=== PATIENT | female | born 1975 | race Caucasian/White ===

== ENCOUNTER 2018-08-30 04:15 | Emergency (ER) | payer OTHER ==
[2018-08-30 04:48] VITALS: BP 113/82; TEMP 98.6; BMI 27.2
[2018-08-30] MEDS ORDERED: SODIUM CHLORIDE 1,000 ML IV STA (04:53)
--- NOTE | 2018-08-30 04:53 | PDOC ---
*Physical Exam - Vital Signs Last Vital Signs Temp Pulse Resp BP Pulse Ox 98.6 F 64 18 113/82 99 08/30/18 04:15 08/30/18 04:15 08/30/18 04:15 08/30/18 04:15 08/30/18 04:15 Heart Score/ECG Review #1 ECG reviewed & interpreted by me at: 05:15 08/30/18 05:18 NSR 60 with 1st degree AV block, normal axis, no std/donovan, QTC 428 msec Medical Decision Making - Medical Decision Making 08/30/18 04:53 Pt seen by the Advanced Practice Provider under my direct supervision Ancillary studies reviewed I agree with plan as outlined by the Advanced Practice Provider TANVIR Ruiz *DC/Admit/Observation/Transfer - Discharge Dispostion Condition at time of disposition: Fair - Referrals Referrals: Yony Smith MD [Primary Care Provider] - - Patient Instructions - Post Discharge Activity
--- NOTE | 2018-08-30 04:54 | PDOC ---
History of Present Illness - General Chief Complaint: Blood Pressure Problem Stated Complaint: CHECK BP Time Seen by Provider: 08/30/18 04:21 History Source: Patient Exam Limitations: No Limitations - History of Present Illness Initial Comments: 08/30/18 05:02 Patient is a 42-year-old female with no past medical history who presents to emergency department today for palpitations. Patient states her patient started at 7 PM this evening after taking medication given to her from her friend for shoulder pain. She states that she feels her heart flutter about every 2 minutes. Denies fevers, chills, chest pain, shortness of breath, difficulty breathing, nausea, vomiting and diarrhea. Past History - Travel Traveled outside of the country in the last 30 days: No Close contact w/someone who was outside of country & ill: No - Past Medical History Allergies/Adverse Reactions: Allergies Allergy/AdvReac Type Severity Reaction Status Date / Time No Known Allergies Allergy Verified 08/30/18 04:49 Home Medications: Ambulatory Orders NK [No Known Home Medication] 08/30/18 - Suicide/Smoking/Psychosocial Hx Smoking History: Never smoked Have you smoked in the past 12 months: No Information on smoking cessation initiated: No Hx Alcohol Use: No Drug/Substance Use Hx: No Substance Use Type: None Review of Systems - Review of Systems Able to Perform ROS?: Yes Comments:: 08/30/18 04:53 CONSTITUTIONAL: Absent: fever, chills, diaphoresis, generalized weakness, malaise, loss of appetite HEENT: Absent: rhinorrhea, nasal congestion, throat pain, throat swelling, difficulty swallowing, mouth swelling, ear pain, eye pain, visual Changes CARDIOVASCULAR: Present: palpitations Absent: chest pain, loss of consciousness, irregular heart rate, peripheral edema RESPIRATORY: Absent: cough, shortness of breath, dyspnea with exertion, orthopnea, wheezing, stridor, hemoptysis GASTROINTESTINAL: Absent: abdominal pain, abdominal distension, nausea, vomiting, diarrhea, constipation, melena, hematochezia GENITOURINARY: Absent: dysuria, frequency, urgency, hesitancy, hematuria, flank pain, genital pain MUSCULOSKELETAL: Absent: myalgia, arthralgia, joint swelling SKIN: Absent: rash, itching, pallor HEMATOLOGIC/IMMUNOLOGIC: Absent: easy bleeding, easy bruising, lymphadenopathy, frequent infections ENDOCRINE: Absent: unexplained weight gain, unexplained weight loss, heat intolerance, cold intolerance NEUROLOGIC: Absent: headache, focal weakness or paresthesias, dizziness, unsteady gait, seizure, mental status changes, bladder or bowel incontinence PSYCHIATRIC: Absent: anxiety, depression, suicidal or homicidal ideation, hallucinations. Is the patient limited Turkish proficient: No *Physical Exam - Vital Signs Last Vital Signs Temp Pulse Resp BP Pulse Ox 98.6 F 64 18 113/82 99 08/30/18 04:15 08/30/18 04:15 08/30/18 04:15 08/30/18 04:15 08/30/18 04:15 - Physical Exam Comments: 08/30/18 04:53 GENERAL: Well developed, well nourished. Awake and alert. No acute distress. HEENT: Normocephalic, atraumatic. PERRLA, EOMI. No conjunctival pallor. Sclera are non- icteric. Moist mucous membranes. Oropharynx is clear. NECK: Supple. Full ROM. No JVD. Carotid pulses 2+ and symmetric, without bruits. No thyromegaly. No lymphadenopathy. CARDIOVASCULAR: Regular rate and rhythm. No murmurs, rubs, or gallops. Distal pulses are 2+ and symmetric. PULMONARY: No evidence of respiratory distress. Lungs clear to auscultation bilaterally. No wheezing, rales or rhonchi. ABDOMINAL: Soft. Non-tender. Non-distended. No rebound or guarding. No organomegaly. Normoactive bowel sounds. MUSCULOSKELETAL Normal range of motion at all joints. No bony deformities or tenderness. No CVA tenderness. EXTREMITIES: No cyanosis. No clubbing. No edema. No calf tenderness. SKIN: Warm and dry. Normal capillary refill. No rashes. No jaundice. NEUROLOGICAL: Alert, awake, appropriate. Cranial nerves 2-12 intact. No deficits to light touch and temperature in face, upper extremities and lower extremities. No motor deficits in the in face, upper extremities and lower extremities. Normoreflexic in the upper and lower extremities. Normal speech. Toes are down- going bilaterally. Gait is normal without ataxia. PSYCHIATRIC: Cooperative. Good eye contact. Appropriate mood and affect. ED Treatment Course - LABORATORY CBC & Chemistry Diagram: 08/30/18 05:20 08/30/18 05:20 Medical Decision Making - Medical Decision Making 08/30/18 06:17 Patient is a 42-year-old female with past medical history of anxiety who presents emergency department today with palpitations since last night starting at around 7 PM. On exam patient with normal heart rate and rhythm. S1 and S2 present without murmurs rubs or gallops. Lungs clear auscultation bilaterally Heart rate at 60 bpm. Patient states that she is still feeling palpitations. Differential diagnosis includes but is not limited to cardiac pathology, hypo-/ hyperthyroidism, dehydration,anemia, electrolyte abnormality. Labs, EKG, urine ordered EKG: rate 60 BPM, sinus rhythm with 1st degree AV block. QTc 428. Normal axis. No acute ST-T wave changes 08/30/18 06:41 Labs show no leukocytosis, H&H is stable. Electrolytes are grossly within normal limits. Troponin is negative. TSH is mildly elevated at 3.99; unlikely this is the cause of her palpitations at this time. Patient pending urine and hCG test. Sign out given to TANVIR Connor; patient pending urine results; if normal may go home with PCP and cardiology follow-up. *DC/Admit/Observation/Transfer Diagnosis at time of Disposition: Palpitations - Discharge Dispostion Disposition: HOME Condition at time of disposition: Fair Decision to Admit order: No - Referrals Referrals: Yony Smith MD [Primary Care Provider] - Lan Ortiz MD [Staff Physician] - - Patient Instructions Printed Discharge Instructions: DI for Palpitations Additional Instructions: You were evaluated for your palpitations today. Your EKG was normal. Her lab work showed a mildly elevated TSH. This means you may have low thyroid levels. You need to follow up with your primary care doctor for further testing. Please follow up with cardiology this week regarding her palpitations for further evaluation. A referral has been provided. Please follow up with her primary care doctor this week. Return to the emergency department if you have worsening palpitations, chest pain, shortness of breath, difficulty breathing, or if you have any changes in your symptoms. - Post Discharge Activity Forms/Work/School Notes: Back to Work
[2018-08-30 05:35] LABS: BASO % 0.6 % (0-2.0); EOS % 2.3 % (0-4.5); HEMATOCRIT 39.3 % (32.4-45.2); HEMOGLOBIN 12.4 GM/dL (10.7-15.3); LYMPH % 30.5 % (8-40); MCH 24.8 pg (25.7-33.7); MCHC 31.6 g/dl (32.0-36.0); MEAN CELL VOLUME 78.4 fl (80-96); MONO % 8.7 % (3.8-10.2); NEUT % 57.9 % (42.8-82.8); PLATELET COUNT 101 K/MM3 (134-434); RBC 5.01 M/mm3 (3.60-5.2); WHITE BLOOD COUNT 7.4 K/mm3 (4.0-10.0)
[2018-08-30 06:11] LABS: ALBUMIN 3.6 g/dl (3.4-5.0); ALK PHOS 61 U/L (45-117); ANION GAP 7 MMOL/L (8-16); BILIRUBIN,TOTAL 0.2 mg/dL (0.2-1); BLOOD UREA NITROGEN 17 mg/dL (7-18); CALCIUM 8.5 mg/dL (8.5-10.1); CHLORIDE 104 mmol/L (98-107); CO2 28 mmol/L (21-32); CREATININE 0.6 mg/dL (0.55-1.3); GLUCOSE,RANDOM 89 mg/dL (74-106); MAGNESIUM 2.3 mg/dL (1.8-2.4); POTASSIUM 3.7 mmol/L (3.5-5.1); SGOT/AST 18 U/L (15-37); SGPT/ALT 22 U/L (13-61); SODIUM 139 mmol/L (136-145); TOT PROT 7.1 g/dl (6.4-8.2)
[2018-08-30 06:39] LABS: URINE APPEARANCE CLEAR; URINE BILIRUBIN NEGATIVE (<2.0 mg/dL); URINE COLOR LTYELLOW; URINE GLUCOSE (UA) NEGATIVE (NEGATIVE); URINE KETONE NEGATIVE (NEGATIVE); URINE LEUK ESTERASE NEGATIVE (NEGATIVE); URINE NITRITE NEGATIVE (NEGATIVE); URINE PROTEIN NEGATIVE (NEGATIVE); URINE UROBILINOGEN NEGATIVE mg/dL (0.2-1.0)
[2018-08-30 06:42] LABS: HCG,QUALITATIVE URINE Negative
--- NOTE | 2018-08-30 15:40 | EKG ---
Test Reason : Blood Pressure : / mmHG Vent. Rate : 060 BPM Atrial Rate : 060 BPM P-R Int : 214 ms QRS Dur : 094 ms QT Int : 428 ms P-R-T Axes : 034 058 033 degrees QTc Int : 428 ms SINUS RHYTHM WITH 1ST DEGREE A-V BLOCK OTHERWISE NORMAL ECG WHEN COMPARED WITH ECG OF 10-JAN-2012 16:48, NO SIGNIFICANT CHANGE WAS FOUND Confirmed by GARRETT ANN, VIV ([id number]) on 08/30/2018 3:39:31 PM Referred By: Confirmed By:VIV TUCKER MD
[2018-09-01 12:52] VITALS: PULSE 60
== END 2018-08-30 07:45 | disposition home or self-care (01) ==
LOC: JER 04:15
PROC: 3E0337Z Introduction of Electrolytic and Water Balance Substance into Peripheral Vein, Percutaneous Approach (ICD-10-PCS; principal; 2018-08-30)
DX: R00.2 Palpitations (principal)
CPT/HCPCS: 36415; 80053; 81003; 82550; 83735; 84443; 84484; 84703; 85025; 93005; 93010; 99281-25; 99283-25; J7030

== ENCOUNTER 2020-06-20 23:37 | Emergency (ER) | payer OTHER ==
[2020-06-20 23:47] VITALS: BP 101/65; PULSE 80; TEMP 97; BMI 30.4
[2020-06-21] MEDS ORDERED: CEPHALEXIN MONOHYDRATE 500 MG CAPSULE (UD) PO ONE (01:16)
[2020-06-21] MEDS ORDERED: AMOX TR/POT CLAV 875MG/125MG TABLETS (FP) PO ONE (01:20)
--- NOTE | 2020-06-21 01:32 | PDOC ---
History of Present Illness - General Chief Complaint: Bite Stated Complaint: SWOLLEN LEFT FOOT Time Seen by Provider: 06/21/20 00:29 - History of Present Illness Initial Comments: HPI Pt is 44 yo F with no significant PMH presenting with increased erythema, swelling, and pain along L ankle. Pt reports that she felt a bite 3 days ago and has reported intermittent pruritus since then. Pt reports she has been scratching the area. This morning she notice increased erythema over L ankle. This evening she noticed worsening erythema, swelling, and pain to touching the area. Also reports associated warmth of the area. Worse with movement or touching the ankle; pt can bear weight on L foot. Denies fevers, chills, mayalgias, nausea, vomiting, diarrhea, constipation, chest pain, abdominal pain, and SOB. No sick contacts or recent travel. PMHX: as in HPI PSHX: as in HPI Meds: none Allergies: nkda Tob: denies Etoh: ocassional Rec drugs: denies ROS GENERAL/CONSTITUTIONAL: No fever or chills. No weakness. HEAD, EYES, EARS, NOSE AND THROAT: No change in vision. No ear pain or discharge. No sore throat. CARDIOVASCULAR: No chest pain or shortness of breath RESPIRATORY: No cough, wheezing, or hemoptysis. GASTROINTESTINAL: No nausea, vomiting, diarrhea or constipation. GENITOURINARY: No dysuria, frequency, or change in urination. MUSCULOSKELETAL: No joint or muscle swelling or pain. No neck or back pain. SKIN: + increased erythema, swelling, warmth and pain over L ankle skin NEUROLOGIC: No headache, vertigo, loss of consciousness, or change in strength/sensation. ENDOCRINE: No increased thirst. No abnormal weight change HEMATOLOGIC/LYMPHATIC: No anemia, easy bleeding, or history of blood clots. ALLERGIC/IMMUNOLOGIC: No hives or skin allergy. PE GENERAL: Awake, alert, and fully oriented, in no acute distress HEAD: No signs of trauma, normocephalic, atraumatic EYES: PERRLA, EOMI, sclera anicteric, conjunctiva clear ENT: Auricles normal inspection, hearing grossly normal, nares patent, oropharynx clear without exudates. Moist mucosa NECK: Normal ROM, supple, no lymphadenopathy, JVD, or masses LUNGS: No distress, speaks full sentences, clear to auscultation bilaterally HEART: Regular rate and rhythm, normal S1 and S2, no murmurs, rubs or gallops, peripheral pulses normal and equal bilaterally. ABDOMEN: Soft, nontender, normoactive bowel sounds. No guarding, no rebound. No masses EXTREMITIES : Normal inspection, Normal range of motion. L ankle neurovascularly intact (good distal pulses, sensation and strength intact) NEUROLOGICAL: Cranial nerves II through XII grossly intact. Normal speech, norm al gait, no focal sensorimotor deficits SKIN: Warm, Dry, normal turgor; L ankle tender to palpation, warm, increased erythema of 4 cm in diameter; no fluctuance; no pustular drainage 06/21/20 03:13 Past History - Medical History Allergies/Adverse Reactions: Allergies Allergy/AdvReac Type Severity Reaction Status Date / Time No Known Allergies Allergy Verified 06/20/20 23:42 Home Medications: Ambulatory Orders Amoxicillin/Potassium Clav [Augmentin 875-125 Tablet] 1 each PO BID #14 tablet 06/21/20 COPD: No - Surgical History Abdominal Surgery: Yes (Liposuction) - Reproductive History Is Patient Now?: No - Psycho-Social/Smoking History Smoking History: Never smoked Have you smoked in the past 12 months: No *Physical Exam - Vital Signs Last Vital Signs Temp Pulse Resp BP Pulse Ox 97 F L 80 18 101/65 98 06/20/20 23:39 06/20/20 23:39 06/20/20 23:39 06/20/20 23:39 06/20/20 23:39 Medical Decision Making - Medical Decision Making Pt is a 44 yo F with no significant PMH presenting with increased erythema, swelling, warmth, and pain along L ankle after bug bite and itching. DDX including but not limited to: uncomplicated cellulitis, dermatitis after bug bite, less likely abscess W/U: - no further workup needed at this point; very likely to be uncomplicated cellulitis TX: - one dose PO augmentin given in the ED; pt to be discharged with prescription for PO augmentin. Patient stable for discharge. Informed of all lab and imaging results. Given follow up instructions and strict return precautions. Patient expressed understanding and agree to plan 06/21/20 03:25 Discharge - Discharge Information Problems reviewed: Yes Clinical Impression/Diagnosis: Cellulitis, Bug bite Condition: Stable Disposition: HOME - Admission No - Additional Discharge Information Prescriptions: Amoxicillin/Potassium Clav [Augmentin 875-125 Tablet] 1 each PO BID #14 tablet - Follow up/Referral - Patient Discharge Instructions Patient Printed Discharge Instructions: DI for Cellulitis -- Adult, DI for Insect Bites and Stings Additional Instructions: You were seen in the ED for complaints of increasing warmth, redness, and swelling after a bug bite. In the ED you were evaluated with physical examination Your results were concerning for cellulitis (skin infection) of your L ankle. There does not appear to be an acute need for immediate hospitalization. You are advised to follow up with your Primary Care Physician within 1 week. You were given a prescription for Augmenting (antibiotic) twice a day. Return to the ED immediately if you experience fevers, worsening redness and swelling, worsening spread of infection, development of an abscess, or any other concerning symptoms (including but not limited to pain not controlled with medications, changes in sensation, etc.) - Post Discharge Activity
--- NOTE | 2020-06-21 01:32 | PDOC ---
Documentation entered by Aaron Ortiz SCRIBE, acting as scribe for Gerda Reyes MD. Gerda Reyes MD: This documentation has been prepared by the Diana cesar Xhesika, SCRIBE, under my direction and personally reviewed by me in its entirety. I confirm that the documentation accurately reflects all work, treatment, procedures, and medical decision making performed by me. Attending Attestation - Resident Resident Name: [email or web address] - ED Attending Attestation I have performed the following: I have examined & evaluated the patient, The case was reviewed & discussed with the resident, I agree w/resident's findings & plan - HPI HPI: 06/21/20 01:09 The patient is a 44y/o F with no pmh who presents to the ED s/p bite 3 days ago. Pt states she felt a bite 3 days ago and since then has been endorsing in termittent itchiness, L lateral ankle pain, redness and edema, worsening this morning. Pt reports L ankle pain with walking and L ankle pain to touch. Pt denies fevers, chills, N/V/D. Allergies: NKDA - Physicial Exam PE: 06/21/20 01:14 GENERAL: Awake, alert, and fully oriented, in no acute distress HEAD: No signs of trauma EYES: PERRLA, EOMI, sclera anicteric, conjunctiva clear ENT: Auricles normal inspection, hearing grossly normal, nares patent, oropharynx clear without exudates. Moist mucosa NECK: Normal ROM, supple, no lymphadenopathy, JVD, or masses LUNGS: Breath sounds equal, clear to auscultation bilaterally. No wheezes, and no crackles HEART: Regular rate and rhythm, normal S1 and S2, no murmurs, rubs or gallops ABDOMEN: Soft, nontender, normoactive bowel sounds. No guarding, no rebound. No masses EXTREMITIES: +L lateral ankle pain, redness and edema. Normal range of motion. No clubbing or cyanosis. No cords, erythema NEUROLOGICAL: Cranial nerves II through XII grossly intact. SKIN: Warm, Dry, normal turgor, no rashes lesions noted. - Medical Decision Making 06/21/20 04:39 Pt will be discharged home on augmentin and she is to return for worsening cellulitis Discharge - Discharge Information Problems reviewed: Yes Clinical Impression/Diagnosis: Cellulitis, Bug bite Condition: Stable Disposition: HOME - Additional Discharge Information Prescriptions: Amoxicillin/Potassium Clav [Augmentin 875-125 Tablet] 1 each PO BID #14 tablet - Follow up/Referral - Patient Discharge Instructions Patient Printed Discharge Instructions: DI for Cellulitis -- Adult, DI for Insect Bites and Stings Additional Instructions: You were seen in the ED for complaints of increasing warmth, redness, and swelling after a bug bite. In the ED you were evaluated with physical examination Your results were concerning for cellulitis (skin infection) of your L ankle. There does not appear to be an acute need for immediate hospitalization. You are advised to follow up with your Primary Care Physician within 1 week. You were given a prescription for Augmenting (antibiotic) twice a day. Return to the ED immediately if you experience fevers, worsening redness and swelling, worsening spread of infection, development of an abscess, or any other concerning symptoms (including but not limited to pain not controlled with medications, changes in sensation, etc.) - Post Discharge Activity
[2020-06-21] MEDS ORDERED: AMOX TR/POT CLAV 875MG/125MG TABLETS (FP) ONE (01:33)
== END 2020-06-21 01:42 | disposition home or self-care (01) ==
LOC: JER 23:37
DX: L03.116 Cellulitis of left lower limb (principal)
CPT/HCPCS: 99284-25

== ENCOUNTER 2020-07-25 13:57 | Emergency (ER) | payer OTHER ==
[2020-07-25 14:04] VITALS: BP 115/74; PULSE 75; TEMP 98.5; BMI 30.5
--- OUTSIDE RECORDS SUMMARY | 2020-07-25 14:18 | XMS ---
:1975 Author Organization [facility] Support Name Relationship Address Phone UE Unavailable Unavailable Unavailable TOMASA DOE MOTHER [phone] [place] [address] TOMASA DOE Mother [address] [place] [address] Re-disclosure Warning The records that you are about to access may contain information from federally- assisted alcohol or drug abuse programs. If such information is present, then the following federally mandated warning applies: This information has been disclosed to you from records protected by federal confidentiality rules (42 CFR part 2). The federal rules prohibit you from making any further disclosure of this information unless further disclosure is expressly permitted by the written consent of the person to whom it pertains or as otherwise permitted by 42 CFR part 2. A general authorization for the release of medical or other information is NOT sufficient for this purpose. The Federal rules restrict any use of the information to criminally investigate or prosecute any alcohol or drug abuse patient.The records that you are about to access may contain highly sensitive health information, the redisclosure of which is protected by Article 27-F of the [facility] Public Health law. If you continue you may haveaccess to information: Regarding HIV / AIDS; Provided by facilities licensed or operated by the [facility] Office of Mental Health; or Provided by the [facility] Office for People With Developmental Disabilities. If such information is present, then the following [facility] mandated warning applies: This information has been disclosed to you from confidential records which are protected by state law. State law prohibits you from making any further disclosure of this information without the specific written consent of the person to whom it pertains, or as otherwise permitted by law. Any unauthorized further disclosure in violation of state law may result in a fine or mcfp sentence or both. A general authorization for the release of medical or other information is NOT sufficient authorization for further disclosure. Encounters Encounter Providers Location Date Indications Data Source(s ) Outpatient [facility] 06/22/2019 eCW3 ([facility] A28 12:00:00 AM [place] [facility] EDT - Care) 06/22/2019 12:00:00 AM EDT Outpatient [facility] 06/15/2019 eCW3 ([facility] A28 12:00:00 AM [place] [facility] EDT - Care) 06/15/2019 12:00:00 AM EDT (ROV) Regular [facility] 06/06/2019 eCW3 ( [facility] A28 12:00:00 AM [facility] EDT - Care) 06/06/2019 12:00:00 AM EDT Medications Medication Brand Start Product Dose Route Administrative Pharmacy [facility] Indications Reaction Description Data Name Date Form Instructions Instructions Source(s) Albuterol Albute 3.0 active Albuterol eCW3 0.83 MG/ML rol 2019 {ml_a Sulfate (2.5 ([facility] Inhalant Sulfat 12:00: s_nee MG/3ML) Jeremy er Solution e (2.5 00 AM ded} 0.083% Health Albuterol MG/3ML EST Care) Sulfate ) (2.5 0.083% MG/3ML) 0.083% Albuterol Albute 3.0 active Albuterol eCW3 0.83 MG/ML rol 2019 {ml_a Sulfate (2.5 ([facility]ob Inhalant Sulfat 12:00: s_nee MG/3ML) Jeremy er Solution e (2.5 00 AM ded} 0.083% Health Albuterol MG/3ML EST Care) Sulfate ) (2.5 0.083% MG/3ML) 0.083% Amoxicillin Amoxic 1.0 active Amoxici llin- eCW3 875 MG / illin- 2020 {tabl Pot ([facility] Clavulanate Pot 12:00: et} Clavulanate [place] 125 MG Oral Clavul 00 AM 875-125 MG Health Tablet anate EST Care) Amoxicillin 875-12 -Pot 5 MG Clavulanate 875-125 MG Nebulizer - Nebuli 10/19/ active Nebuliz er - eCW3 2019 ([facility] 12:00: [place] 00 AM Health EST Care) Albuterol Albute 3.0 active Albuterol eCW3 0.83 MG/ML rol 2020 {ml_a Sulfate (2.5 ([facility] Inhalant Sulfat 12:00: s_nee MG/3ML) Jeremy er Solution e (2.5 00 AM ded} 0.083% Health Albuterol MG/3ML EST Care) Sulfate ) (2.5 0.083% MG/3ML) 0.083% Nebulizer - Nebuli 10/19/ active Nebuliz er - eCW3 2019 ([facility] 12:00: [place] 00 AM Health EST Care) Albuterol Ipratr .0 active Ipratropi um- eCW3 0.833 MG/ML opium- 2020 {ml} Albuterol ( Jacob / Albute 12:00: 0.5-2.5 (3) R[facility] r Ipratropium rol 00 AM MG/3ML [facility] [place] 0.5-2. EST Care) 0.167 MG/ML 5 (3) Inhalant MG/3ML Solution Ipratropium -Albuterol 0.5-2.5 (3) MG/3ML 200 ACTUAT Ventol 1.0 active Ventolin HFA eCW3 Albuterol in HFA 2019 {puff 108 (90 (Hud son 0.09 108 12:00: _as_n Base) [place] MG/ACTUAT (90 00 AM eeded MCG/ACT Healt h Metered Base) EST } Care) Dose MCG/AC Inhaler T [Ventolin] Ventolin HFA 108 (90 Base) MCG/ACT Albuterol Ipratr 3.0 active Ipratropi um- eCW3 0.833 MG/ML opium- 2020 {ml} Albuterol ( Jacob / Albute 12:00: 0.5-2.5 (3) R[facility] r Ipratropium rol 00 AM MG/3ML [facility] [place] 0.5-2. EST Care) 0.167 MG/ML 5 (3) Inhalant MG/3ML Solution Ipratropium -Albuterol 0.5-2.5 (3) MG/3ML 200 ACTUAT Ventol .0 active Ventolin HFA eCW3 Albuterol in HFA 2019 {puff 108 (90 (Hud son 0.09 108 12:00: _as_n Base) [place] MG/ACTUAT (90 00 AM eeded MCG/ACT Healt h Metered Base) EST } Care) Dose MCG/AC Inhaler T [Ventolin] Ventolin HFA 108 (90 Base) MCG/ACT Amoxicillin Amoxic .0 active Amoxici llin- eCW3 875 MG / illin2019 {tabl Pot (Jacob Clavulanate Pot 12:00: et} Clavulanate [place] 125 MG Oral Clavul 00 AM 875-125 MG Health Tablet anate EST Care) Amoxicillin 875-12 -Pot 5 MG Clavulanate 875-125 MG Albuterol Ipratr .0 active Ipratropi um- eCW3 0.833 MG/ML opium- 2019 {ml} Albuterol ( Jacob / Albute 12:00: 0.5-2.5 (3) [facility] Ipratropium rol 00 AM MG/3ML [facility] [place] 0.5-2. EST Care) 0.167 MG/ML 5 (3) Inhalant MG/3ML Solution Ipratropium -Albuterol 0.5-2.5 (3) MG/3ML 200 ACTUAT Ventol .0 active Ventolin HFA eCW3 Albuterol in HFA 2019 {puff 108 (90 (Hud son 0.09 108 12:00: _as_n Base) [place] MG/ACTUAT (90 00 AM eeded MCG/ACT Healt h Metered Base) EST } Care) Dose MCG/AC Inhaler T [Ventolin] Ventolin HFA 108 (90 Base) MCG/ACT Amoxicillin Amoxic .0 active Amoxici llin- eCW3 875 MG / illin2019 {tabl Pot (Jacob Clavulanate Pot 12:00: et} Clavulanate [place] 125 MG Oral Clavul 00 AM 875-125 MG Health Tablet anate EST Care) Amoxicillin 875-12 -Pot 5 MG Clavulanate 875-125 MG Nebulizer - Nebuli 10/19/ active Nebuliz er - eCW3 2019 (Jacob 12:00: [place] 00 AM Health EST Care) Vitamin D UNK .0 active Vitamin D e CW3 (Ergocalcif 2019 {caps (Ergocalcife (Jacob taya) 37911 12:00: ule} rol) 43125 [place] UNIT 00 AM UNIT Health EDT Care) Vitamin D UNK .0 active Vitamin D e CW3 (Ergocalcif 2018 {caps (Ergocalcife (Jacob taya) 44288 12:00: ule} rol) 35947 [place] UNIT 00 AM UNIT Health EDT Care) Vitamin D UNK .0 active Vitamin D e CW3 (Ergocalcif 2018 {caps (Ergocalcife (Jacob taya) 51010 12:00: ule} rol) 96257 [place] UNIT 00 AM UNIT Health EDT Care) Insurance Providers Payer name Policy type Policy ID Covered Covered libertarian's Policy P camille / Coverage libertarian ID relationship to [place] [facility] [place] [employer] [id number] SP [id number] [id number] [id number] Medicaid (DO NOT USE) [id number] S [id number] [facility] Auth PCP Not MVNHC/YHC/C Dental [id number] S [id number] [employer] [place] [employer] [id number] S [id number] D Medicaid [id number] S [id number] Regular Clinic Visit Problems, Conditions, and Diagnoses Code Display Name Description Problem Type Effective Dates Data Source(s) E55.9 Vitamin D Vitamin D Problem 06/22/2019 eCW3 ([facility] deficiency deficiency 12:00:00 AM EDT [facility] Care) Results ID Date Data Source [id number] 06/03/2020 04:13:00 PM EDT [facility] Name Value Range Interpretation Code Description Data Rabia rce(s) Supporting Document(s ) SARS-COV-2 [facility] QL CHRISTOPHER+PROBE This lab was ordered by [facility] and reported by [facility]. ID Date Data Source [id number] 04/14/2020 12:00:00 AM EDT [facility] Name Value Range Interpretation Code Description Data Rabia rce(s) Supporting Document(s ) COV2 [facility] This lab was ordered by [facility] and reported by [facility] [place]. Procedure Social History Code Duration Value Status Description Data Source(s ) Smoking 10/19/2019 12:00:00 Never Smoker completed Never Smoker e CW3 ([facility]) Smoking 10/19/2019 12:00:00 Never Smoker completed Never Smoker e CW3 ([facility]) Smoking 10/19/2019 12:00:00 Never Smoker completed Never Smoker e CW3 ([facility]) Vital Signs ID Date Data Source UNK Name Value Range Interpretation Code Description Data Source(s) Diastolic blood 68 mm[Hg] 68 mm[Hg] eCW3 ([facility]) Systolic blood 102 mm[Hg] 102 mm[Hg] eCW3 ([facility]) Body temperature 98.1 [degF] 98.1 [degF] eCW3 ( [facility]) Body mass index 28.03 kg/m2 28.03 kg/m2 eCW3 (H udson (BMI) [Ratio] [facility]) Body weight 179 [lb_av] 179 [lb_av] eCW3 ([facility]) Body height 67 [in_i] 67 [in_i] eCW3 ([facility]) Diastolic blood 61 mm[Hg] 61 mm[Hg] eCW3 ([facility]) Systolic blood 93 mm[Hg] 93 mm[Hg] eCW3 ([facility]) Body temperature 97.7 [degF] 97.7 [degF] eCW3 ( [facility]) Body mass index 28.03 kg/m2 28.03 kg/m2 eCW3 (H ud[facility] (BMI) [Ratio] [facility]) Body weight 179 [lb_av] 179 [lb_av] eCW3 ([facility]) Body height 67 [in_i] 67 [in_i] eCW3 ([facility]) Diastolic blood 65 mm[Hg] 65 mm[Hg] eCW3 ([facility]) Systolic blood 106 mm[Hg] 106 mm[Hg] eCW3 ([facility]) Body temperature 98.4 [degF] 98.4 [degF] eCW3 ( [facility]) Heart rate 20 /min 20 /min eCW3 ([facility]) Body mass index 28.19 kg/m2 28.19 kg/m2 eCW3 (H ud[facility] (BMI) [Ratio] [facility]) Body weight 180 [lb_av] 180 [lb_av] eCW3 ([facility]) Body height 67 [in_i] 67 [in_i] eCW3 ([facility]) Patient Treatment Plan of Care Planned Activity Planned Date Details Description Data Source (s) Albuterol 0.83 MG/ML 10/19/2019 12:00:00 eCW3 ([facility] Inhalant Solution [facility] Health Car e) Nebulizer - 10/19/2019 12:00:00 eCW3 ([facility]) 200 ACTUAT Albuterol 10/19/2019 12:00:00 eCW3 ([facility] 0.09 MG/ACTUAT Metered [facility]) Dose Inhaler [Ventolin] Amoxicillin 875 MG / 10/19/2019 12:00:00 eCW3 ([facility] Clavulanate 125 MG Oral [facility]) Tablet Albuterol 0.833 MG/ML / 10/19/2019 12:00:00 eCW3 ([facility] Ipratropium [place] [facility] Health C are) 0.167 MG/ML Inhalant Solution Albuterol 0.83 MG/ML 10/19/2019 12:00:00 eCW3 ([facility] Inhalant Solution AM [facility] Health Car e) Nebulizer - 10/19/2019 12:00:00 eCW3 ([facility]) 200 ACTUAT Albuterol 10/19/2019 12:00:00 eCW3 ([facility] 0.09 MG/ACTUAT Metered [facility]) Dose Inhaler [Ventolin] Amoxicillin 875 MG / 10/19/2019 12:00:00 eCW3 ([facility] [place] Clavulanate 125 MG Oral AM EST Heal th Care) Tablet Albuterol 0.833 MG/ML / 10/19/2019 12:00:00 eCW3 ([facility] [place] Ipratropium [place] EST Health C are) 0.167 MG/ML Inhalant Solution Albuterol 0.83 MG/ML 10/19/2019 12:00:00 eCW3 ([facility] [place] Inhalant Solution EST Health Car e) Nebulizer - 10/19/2019 12:00:00 eCW3 ( dson [facility] Health Care) 200 ACTUAT Albuterol 10/19/2019 12:00:00 eCW3 ([facility] [place] 0.09 MG/ACTUAT Metered AM EST Healt h Care) Dose Inhaler [Ventolin] Amoxicillin 875 MG / 10/19/2019 12:00:00 eCW3 ([facility] [place] Clavulanate 125 MG Oral AM EST Heal Care) Tablet Albuterol 0.833 MG/ML / 10/19/2019 12:00:00 eCW3 ([facility] [place] Ipratropium [place] EST Health C are) 0.167 MG/ML Inhalant Solution
[2020-07-25] MEDS ORDERED: IBUPROFEN 400 MG TABLET (FP) PO ONE ×2 (14:28→14:31)
[2020-07-25] MEDS ORDERED: DEXAMETHASONE SOD PHOSPHATE 10 MG/1 ML VIAL IM ONE (14:28)
[2020-07-25] MEDS ORDERED: LORATADINE 10 MG TABLET PO ONE (14:28)
[2020-07-25] MEDS ORDERED: DEXAMETHASONE SOD PHOSPHATE 10 MG/1 ML VIAL ONE (14:30)
[2020-07-25] MEDS ORDERED: LORATADINE 10 MG TABLET ONE (14:31)
--- NOTE | 2020-07-25 14:46 | PDOC ---
History of Present Illness - General Chief Complaint: Bite Stated Complaint: RASH Time Seen by Provider: 07/25/20 14:10 History Source: Patient - History of Present Illness Location: reports: extremities Past History - Medical History Allergies/Adverse Reactions: Allergies Allergy/AdvReac Type Severity Reaction Status Date / Time No Known Allergies Allergy Verified 07/25/20 14:01 Home Medications: Ambulatory Orders Amoxicillin/Potassium Clav [Augmentin 875-125 Tablet] 1 each PO BID #14 tablet 06/21/20 Cephalexin [Keflex] 500 mg PO Q6H #28 capsule 07/25/20 Diphenhydramine HCl [Benadryl -] 25 mg PO Q6H #28 capsule 07/25/20 Loratadine [Claritin] 10 mg PO DAILY #7 tablet 07/25/20 COPD: No - Surgical History Abdominal Surgery: Yes (Liposuction) - Reproductive History Is Patient Now?: No - Psycho-Social/Smoking History Smoking History: Never smoked Have you smoked in the past 12 months: No - Substance Abuse Hx (Audit-C & DAST Scrn) How often the patient has a drink containing alcohol: Never Score: In Men: 4 or > Positive; In Women: 3 or > Positive: 0 Screen Result (Pos requires Nsg. Audit-10AR): Negative In the last yr the pt used illegal drug/Rx for NonMed reason: No Score: Yes response is considered Positive: 0 Screen Result (Positive result requires Nsg. DAST-10): Negative Review of Systems - Review of Systems Constitutional: No: Chills, Fever Integumentary: Yes: Erythema, Pruritus *Physical Exam - Vital Signs Last Vital Signs Temp Pulse Resp BP Pulse Ox 98.5 F 75 16 115/74 100 07/25/20 14:02 07/25/20 14:02 07/25/20 14:02 07/25/20 14:02 07/25/20 14:02 - Physical Exam General Appearance: Yes: Appropriately Dressed. No: Apparent Distress HEENT: positive: Normal Voice Neck: positive: Supple Respiratory/Chest: negative: Respiratory Distress Integumentary: positive: Dry, Warm, Other (circumferential erythematous papule w/ central blister to L arm, tender and warm) Neurologic: positive: Fully Oriented, Alert, Normal Mood/Affect Medical Decision Making - Medical Decision Making 07/25/20 14:59 44-year-old female, no significant history, here with L arm redness, pain and swelling. Patient states yesterday she noticed a small pimple-like lesion to left arm that she assumed was an insect bite and this a.m. noticed circumferential redness, pain, swelling and intense itching. Was seen for similar to her lower extremity in the past after an insect bite per patient. Feels well otherwise and no fever or chills see exam Suspect hive 2/2 ? insect bite w/ possibly superimposed cellulitis No systemic s/s Exam remarkable for circumferential papular rash to L arm, warm and tender w/ central blister seen s/f ? insect bite Dose of decadron and oral antihistamine given in ED Dc w/ meds, cool compresses and to return in 2 days for wound check Discharge - Discharge Information Problems reviewed: Yes Clinical Impression/Diagnosis: Hives Condition: Good Disposition: HOME - Additional Discharge Information Prescriptions: Diphenhydramine HCl [Benadryl -] 25 mg PO Q6H #28 capsule Loratadine [Claritin] 10 mg PO DAILY #7 tablet Cephalexin [Keflex] 500 mg PO Q6H #28 capsule - Follow up/Referral Referrals: Lolis Perla MD [Primary Care Provider] - - Patient Discharge Instructions Patient Printed Discharge Instructions: DI for Insect Bites and Stings Additional Instructions: Your symptoms is most likely an allergic reaction due to a possible insect bite but as we cannot rule out an infection we have treated you for both Take medications as directed and return in 2 days for wound check - Post Discharge Activity
== END 2020-07-25 14:38 | disposition home or self-care (01) ==
LOC: JERFT 13:57
PROC: 3E023GC Introduction of Other Therapeutic Substance into Muscle, Percutaneous Approach (ICD-10-PCS; principal; 2020-07-25)
DX: L50.9 Urticaria, unspecified (principal)
CPT/HCPCS: 99284-25; J1100

== ENCOUNTER 2021-06-15 16:10 | Emergency (ER) | payer OTHER ==
[2021-06-15 16:28] VITALS: BP 112/75; PULSE 71; TEMP 97.9; BMI 25.9
[2021-06-15] MEDS ORDERED: DIPHTH,PERTUSS(ACELL),TET 0.5 ML DISP.SYRIN IM ONE ×2 (16:40→16:45)
== END 2021-06-15 17:00 | disposition home or self-care (01) ==
LOC: JERFT 16:10 → JER 16:10 → JERFT 17:00
PROC: 3E0234Z Introduction of Serum, Toxoid and Vaccine into Muscle, Percutaneous Approach (ICD-10-PCS; principal; 2021-06-15)
DX: S91.202A Unspecified open wound of left great toe with damage to nail, initial encounter (principal); W22.8XXA Striking against or struck by other objects, initial encounter; Y92.9 Unspecified place or not applicable
CPT/HCPCS: 90471; 90715; 99283-25

== ENCOUNTER 2023-08-23 14:19 | Emergency (ER) | payer OTHER ==
[2023-08-23 15:04] VITALS: TEMP 97.8; BMI 27.3
[2023-08-23] MEDS ORDERED: ACETAMINOPHEN 325 MG TABLET (FP) PO ONE (15:35)
[2023-08-23] MEDS ORDERED: ACETAMINOPHEN 325 MG TABLET (FP) ONE (16:08)
[2023-08-23 16:44] LABS: BASO % 0.6 % (0-2.0); HEMATOCRIT 42.3 % (32.4-45.2); HEMOGLOBIN 13.8 GM/dL (10.7-15.3); MCH 25.4 pg (25.7-33.7); MCHC 32.6 g/dl (32.0-36.0); MEAN CELL VOLUME 77.9 fl (80-96); MONO % 6.5 % (3.8-10.2); NEUT % 72.9 % (42.8-82.8); PLATELET COUNT 127 10^3/uL (134-434); RBC 5.43 M/mm3 (3.60-5.2); RDW 14.1 % (11.6-15.6); WHITE BLOOD COUNT 8.6 K/mm3 (4.0-10.0)
[2023-08-23 17:08] LABS: POTASSIUM 4.3 mmol/L (3.5-5.1)
[2023-08-23 17:10] LABS: CALCIUM 8.9 mg/dL (8.5-10.1)
[2023-08-23 17:11] LABS: ALBUMIN 3.8 g/dl (3.4-5.0); BLOOD UREA NITROGEN 10.9 mg/dL (7-18)
[2023-08-23 17:14] LABS: CREATININE 0.7 mg/dL (0.55-1.3)
[2023-08-23 17:15] LABS: BILIRUBIN,TOTAL 0.3 mg/dL (0.2-1)
[2023-08-23 17:16] LABS: TOT PROT 7.5 g/dl (6.4-8.2)
[2023-08-23 18:23] VITALS: BP 110/60; PULSE 78; RESP 16
== END 2023-08-23 18:27 | disposition home or self-care (01) ==
LOC: JER 14:19
DX: H57.12 Ocular pain, left eye (principal); H11.32 Conjunctival hemorrhage, left eye; R51.9 Headache, unspecified
CPT/HCPCS: 36415; 80053; 85025; 99283-25

== ENCOUNTER 2023-11-22 22:34 | Emergency (ER) | payer OTHER ==
[2023-11-22 22:39] VITALS: BP 134/86; PULSE 96; RESP 20; BMI 27.8
[2023-11-22] MEDS ORDERED: PSEUDOEPHEDRINE HCL 60 MG TABLET ONE (23:48)
[2023-11-22] MEDS ORDERED: KETOROLAC TROMETHAMINE 30 MG/1 ML VIAL ONE (23:50)
[2023-11-22] MEDS ORDERED: DEXAMETHASONE SOD PHOSPHATE 10 MG/1 ML VIAL ONE (23:50)
[2023-11-22] MEDS: PSEUDOEPHEDRINE HCL 30 MG TABLET PO ONE (23:55)
[2023-11-22] MEDS: KETOROLAC TROMETHAMINE 30 MG/1 ML VIAL IM ONE (23:55)
[2023-11-22] MEDS: DEXAMETHASONE SOD PHOSPHATE 10 MG/1 ML VIAL IM ONE (23:55)
[2023-11-23] MEDS: ALBUTEROL SO4 2.5/IPRATROPIUM 0.5 INH SOL 3 ML VIAL.NEB. NEB SCH (01:37)
[2023-11-23 02:11] VITALS: TEMP 98.9
== END 2023-11-23 02:16 | disposition home or self-care (01) ==
LOC: JER 22:34 → JERFT 22:34 → JER 11-23 02:16
PROC: 3E0233Z Introduction of Anti-inflammatory into Muscle, Percutaneous Approach (ICD-10-PCS; principal; 2023-11-23)
PROC: 3E023GC Introduction of Other Therapeutic Substance into Muscle, Percutaneous Approach (ICD-10-PCS; 2023-11-23)
PROC: 3E0F7GC Introduction of Other Therapeutic Substance into Respiratory Tract, Via Natural or Artificial Opening (ICD-10-PCS; 2023-11-23)
DX: R05.1 Acute cough (principal); R09.81 Nasal congestion; R51.9 Headache, unspecified; R42 Dizziness and giddiness; R06.02 Shortness of breath; R06.2 Wheezing; B34.9 Viral infection, unspecified; Z20.822 Contact with and (suspected) exposure to COVID-19
CPT/HCPCS: 0241U-QW; 70450-TC; 70486-TC; 93005; 93010; 99285-25; J1100

== ENCOUNTER 2024-05-22 20:14 | Emergency (ER) | payer OTHER ==
[2024-05-22 20:23] VITALS: BP 109/74; PULSE 63; RESP 20; TEMP 98.4; BMI 27.3
[2024-05-22 22:01] LABS: EPI CELLS 12 /uL (0-25.1); HCG,QUALITATIVE URINE Negative; HYALINE CASTS 0 /uL (0-3.1); URINE APPEARANCE CLEAR; URINE BACTERIA 166 /uL (0-1359); URINE BILIRUBIN NEGATIVE (NEGATIVE); URINE COLOR YELLOW; URINE GLUCOSE (UA) NEGATIVE (NEGATIVE); URINE KETONE NEGATIVE (NEGATIVE); URINE LEUK ESTERASE TRACE (NEGATIVE); URINE NITRITE NEGATIVE (NEGATIVE); URINE PROTEIN NEGATIVE (NEGATIVE); URINE RBC 25 /uL (0-23.9); URINE UROBILINOGEN 0.2 mg/dL (0.2-1.0); URINE WBC 24 /uL (0-25.8)
== END 2024-05-22 22:12 | disposition home or self-care (01) ==
LOC: JER 20:14
DX: R10.31 Right lower quadrant pain (principal)
CPT/HCPCS: 76830-TC; 81003; 84703; 99284-25